=== PATIENT | female | born 1960 | race Hispanic/Latino ===

== ENCOUNTER 2021-05-21 00:27 | Emergency (ER) | payer OTHER ==
[~2021-05-21] VITALS: Ht 170.2 cm; Wt 74.8 kg
[~2021-05-21 00:27] MED LIST: AMITRIPTYLINE H10 MG PO; CRESTOR20 MG PO; CYMBALTA60 MG PO; GABAPENTIN600 MG PO; LOVASA PO; PANTOPRAZOLE SO20 MG PO; PROPANALOL PO; VITAMIN C1000 M1 PO; VITAMIN D31000 UNI2 PO; VITAMIN D31000 UNIT
[2021-05-21] MEDS ORDERED: DEXAMETHASONE 4 MG TAB PO ONE (01:00)
[2021-05-21] MEDS ORDERED: ONDANSETRON HCL 4 MG ORAL DISINTEGRATING TAB PO ONE (01:45)
[2021-05-21] MEDS ORDERED: ONDANSETRON HCL 4 MG ORAL DISINTEGRATING TAB ONE (01:46)
== END 2021-05-21 03:18 | disposition home or self-care (01) ==
LOC: ER 00:54
DX: R05 Cough (principal); U07.1 COVID-19; E11.9 Type 2 diabetes mellitus without complications; E78.5 Hyperlipidemia, unspecified
CPT/HCPCS: 71045; 99282; J8540; Q0162; U0002